=== PATIENT | female | born 1970 | race Caucasian/White ===

== ENCOUNTER 2019-07-22 14:47 | Emergency (ER) | payer OTHER ==
[~2019-07-22] VITALS: Ht 170.2 cm; Wt 65.9 kg
[2019-07-22] MEDS ORDERED: SYNT50TA PO (14:55)
[2019-07-22] MEDS ORDERED: methylPREDNISolone INJ 125 MG/2 ML VIAL (J2930) IM ONE (16:45)
[2019-07-22] MEDS ORDERED: KETOROLAC 60 MG/2 ML VIAL (J1885) IM ONE (16:45)
[2019-07-22 17:19] VITALS: BP 146/92
[2019-07-22] MEDS ORDERED: CYCL10TA PO (17:24)
[2019-07-22] MEDS ORDERED: CYCLOBENZAPRINE 10 MG TAB PO ONE (17:30)
== END 2019-07-22 17:38 | disposition home or self-care (01) ==
LOC: M ED 14:47
DX: S39.012A Strain of muscle, fascia and tendon of lower back, initial encounter (principal); X50.0XXA Overexertion from strenuous movement or load, initial encounter; Y92.098 Other place in other non-institutional residence as the place of occurrence of the external cause; E03.9 Hypothyroidism, unspecified; Z79.899 Other long term (current) drug therapy
CPT/HCPCS: 96372; 99283; J1885; J2930

== ENCOUNTER 2019-08-08 08:16 | Emergency (ER) | payer OTHER ==
[~2019-08-08] VITALS: Ht 170.2 cm; Wt 66.7 kg
[~2019-08-08 08:16] MED LIST: CYCL10TA PO; SYNT50TA PO
[2019-08-08] MEDS ORDERED: BENA25CA4 PO (08:21)
[2019-08-08] MEDS ORDERED: diphenhydrAMINE INJ 50MG/ML VIAL (J1200) IV ONE (08:45)
[2019-08-08] MEDS ORDERED: NS 1,000 ML IV ONE (08:45)
[2019-08-08] MEDS ORDERED: FAMOTIDINE INJ 20MG/2ML VIAL (S0028) IVP ONE (08:45)
[2019-08-08] MEDS ORDERED: methylPREDNISolone INJ 125 MG/2 ML VIAL (J2930) IV ONE (08:45)
[2019-08-08 09:08] LABS: BASO % 0.6 % (0.0-1.0); EOS # 0.1 10^3/uL (0.0-0.5); EOS % 2.6 % (0.0-3.0); HEMATOCRIT 42.6 % (36.0-47.0); HEMOGLOBIN 13.9 g/dl (12.0-15.5); LYMPH # 1.8 10^3/uL (1.5-5.0); LYMPH % 38.1 % (24.0-44.0); MEAN CORPUSCULAR HEMOGLOBIN 29.6 pg (27.0-33.0); MEAN CORPUSCULAR HGB CONC 32.6 g/dl (32.0-36.5); MEAN CORPUSCULAR VOLUME 90.8 fl (80.0-96.0); MONO # 0.4 10^3/uL (0.0-0.8); MONO % 7.9 % (0.0-5.0); NEUTROPHILS # 2.4 10^3/uL (1.5-8.5); NEUTROPHILS % 50.6 % (36.0-66.0); PLATELET COUNT, AUTOMATED 242 10^3/uL (150-450); RED BLOOD COUNT 4.69 10^6/uL (4.00-5.40); WHITE BLOOD COUNT 4.7 10^3/uL (4.0-10.0)
[2019-08-08 09:33] LABS: HCG, SERUM QUALITATIVE NEGATIVE (NEGATIVE)
[2019-08-08 09:36] LABS: ALBUMIN 3.9 GM/DL (3.2-5.2); ALT/SGPT 21 U/L (12-78); BILIRUBIN,DIRECT 0.1 MG/DL (0.0-0.2); BILIRUBIN,TOTAL 0.5 MG/DL (0.2-1.0); BLOOD UREA NITROGEN 14 MG/DL (7-18); C REACTIVE PROTEIN QUANTITATIV < 0.30 MG/DL (0.00-0.30); CALCIUM LEVEL 8.6 MG/DL (8.5-10.1); CARBON DIOXIDE LEVEL 27 MEQ/L (21-32); CHLORIDE LEVEL 108 MEQ/L (98-107); COMPLEMENT C4 33 MG/DL (10-40); CREATININE FOR GFR 0.93 MG/DL (0.55-1.30); GLOMERULAR FILTRATION RATE > 60.0 (>58); GLUCOSE, FASTING 104 MG/DL (70-100); POTASSIUM SERUM 3.9 MEQ/L (3.5-5.1); SODIUM LEVEL 139 MEQ/L (136-145); TOTAL PROTEIN 7.2 GM/DL (6.4-8.2)
[2019-08-08 10:27] LABS: ERYTHROCYTE SEDIMENTATION RATE 7 mm/hr (0-20)
[2019-08-08] MEDS ORDERED: diphenhydrAMINE INJ 50MG/ML VIAL (J1200) IV STA (11:44)
[2019-08-08] MEDS ORDERED: PRED20TA PO (12:27)
[2019-08-08] MEDS ORDERED: ALL10TAB2 PO (12:27)
[2019-08-08 12:58] VITALS: BP 112/70
[2019-08-14 00:06] LABS: C1 ESTER INHIB. NON FUNCTIONAL 31 mg/dL (21-39); C1 ESTERASE INHIB. FUNCTIONAL > 92 (.); COAGULATION FACTOR XII ACTIVIT 98 % (50-150); TRYPTASE 5.3 ug/L (2.2-13.2)
== END 2019-08-08 13:02 | disposition home or self-care (01) ==
LOC: M ED 08:16
DX: R22.0 Localized swelling, mass and lump, head (principal); L29.9 Pruritus, unspecified; T78.40XA Allergy, unspecified, initial encounter; T78.3XXA Angioneurotic edema, initial encounter; X58.XXXA Exposure to other specified factors, initial encounter; Y92.89 Other specified places as the place of occurrence of the external cause; E03.9 Hypothyroidism, unspecified; Z79.899 Other long term (current) drug therapy
CPT/HCPCS: 36415; 80048; 80076; 83519; 84703; 85025; 85280; 85652; 86140; 86160; 86161; 93041; 94760; 96361; 96374; 96375; 96376; 99285; J1200; J2930

== ENCOUNTER 2019-10-29 07:16 | Day surgery (SDC) | payer OTHER ==
[~2019-10-29] VITALS: Ht 170.2 cm; Wt 63.0 kg
[~2019-10-29 07:16] MED LIST changes: +ALL10TAB2 PO; +BENA25CA4 PO; +D3 H10002 PO; +EPIP0.3I2 IM; +FISH100042 PO; +FLON1SPR; +LIDOCAINE 1% MDV 20ML VIAL SQ PRN; +LR 1,000 ML IV ONE; +MULTCAP PO; +PRED20TA PO; +PROT20TA11 PO; +SING5CHW23 PO; +ceFAZolin SOD 2 GM in IV 1 EA IV ONE
[2019-10-29] MEDS ORDERED: dexameTHASONE 10 MG/1 ML VIAL PRES.FREE (J1100) ONE (07:17)
[2019-10-29] MEDS ORDERED: propofoL 500 MG/50 ML VIAL As Ordered ONE (08:10)
[2019-10-29] MEDS ORDERED: ONDANSETRON 4MG/2ML VIAL (J2405) As Ordered ONE (08:10)
[2019-10-29] MEDS ORDERED: LIDOCAINE 2% INJ 100 MG/5 ML SDV (FOR ANES.) As Ordered ONE (08:10)
[2019-10-29] MEDS ORDERED: fentaNYL 100 MCG/2 ML INJECTION (J3010) As Ordered ONE ×2 (08:10→10:07)
[2019-10-29] MEDS ORDERED: MIDAZOLAM INJ 2 MG/2 ML VIAL (J2250) As Ordered ONE ×2 (08:10→10:07)
[2019-10-29] MEDS ORDERED: KETOROLAC 60 MG/2 ML VIAL (J1885) As Ordered ONE (08:11)
[2019-10-29] MEDS ORDERED: ACETAMINOPHEN 1000MG 100ML IV BTL (OFIRMEV) (J0131 PER 10MG) As Ordered ONE (08:11)
[2019-10-29] MEDS ORDERED: BUPIVACAINE HCL 0.5% 30 ML VIAL As Ordered ONE (10:12)
[2019-10-29] MEDS ORDERED: fentaNYL 100 MCG/2 ML INJECTION (J3010) IV ONE (11:00)
[2019-10-29] MEDS ORDERED: MIDAZOLAM INJ 2 MG/2 ML VIAL (J2250) IV ONE (11:00)
[2019-10-29] MEDS ORDERED: ROPIvacaine 0.5% 30 ML INJECTION (J2795 PER 1MG) As Ordered ONE (11:29)
[2019-10-29] MEDS ORDERED: ePHEDrine SULFATE 25 MG/5 ML(5MG/ML) SYRINGE As Ordered ONE (12:52)
--- NOTE | 2019-10-29 13:37 | REP ---
C-ARM VIEWS, RIGHT KNEE: Single C-arm view of the right knee is performed. Metallic structure seen overlying the lateral femoral condyle. 11 seconds fluoroscopy time utilized. Electronically Signed by Elton Burkett MD 10/29/2019 04:02 P
[2019-10-29] MEDS ORDERED: fentaNYL 100 MCG/2 ML INJECTION (J3010) IV PRN (13:45)
[2019-10-29] MEDS ORDERED: ONDANSETRON 4MG/2ML VIAL (J2405) IV PRN ×2 (13:45)
[2019-10-29] MEDS ORDERED: PERCOCET 5MG/325MG TAB PO PRN ×2 (13:45)
[2019-10-29] MEDS ORDERED: LR 1,000 ML IV SCH (13:45)
--- NOTE | 2019-10-29 14:19 | REP ---
RIGHT KNEE, TWO VIEWS: Two views right knee performed. Small metallic plate is seen along the lateral femoral condyle. Osseous structures are intact and well aligned. Small amount of air is seen in the soft tissues above the patella. Electronically Signed by Elton Burkett MD 10/29/2019 04:02 P
[2019-10-29 16:00] VITALS: BP 125/125
[2019-10-29] MEDS ORDERED: NAPROXEN 250 MG TAB PO SCH (21:00)
--- NOTE | 2019-10-30 08:09 | RO ---
DATE OF PROCEDURE: 10/29/2019 PREOPERATIVE DIAGNOSIS: Right knee anterior cruciate ligament (ACL) tear. POSTOPERATIVE DIAGNOSES: Right knee anterior cruciate ligament (ACL) tear, small posterior horn lateral meniscal tear and patellofemoral and lateral compartment chondromalacia. PROCEDURE PERFORMED: Right knee exam under anesthesia, diagnostic arthroscopy, ACL reconstruction with allograft and patellofemoral chondroplasty. SURGEON: Keaton Pompa MD COMMUNITY RELATIONS SPECIALIST: UNI[facility] ANESTHESIA PROVIDER: Mike Melgar MD ANESTHESIA GIVEN: Single shot spinal and adductor canal block. TOTAL TOURNIQUET TIME: Was 52 minutes at 250 mmHg right thigh. IMPLANTS USED: Arthrex TightRope RT for femoral fixation, and Arthrex 8 x 23 mm PEEK tibial interference screw and tibialis posterior allograft. ESTIMATED BLOOD LOSS: 5 mL. ANTIBIOTICS: 2 grams Ancef given within 1 hour of incision. MATERIAL SENT TO THE LAB: None. COMPLICATIONS: None. 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 She initially presented with poor range of motion so she was sent physical therapy to regain range of motion and obtain quad control, which she did. Given her age we discussed the possibility of nonoperative treatment. However, given that she is a skier and wants to return to skiing, she elected to proceed with right knee ACL reconstruction. The risks, benefits, indications and alternatives of operative versus nonoperative management were discussed. We included discussion of graft options and the patient elected to proceed with allograft reconstruction for the right ACL. Informed consent was obtained. INTRAOPERATIVE FINDINGS: Exam under anesthesia revealed full passive range of motion. She had a grade 1 pivot shift, 2B Andrew, stable to varus and valgus stress, 0 and 30 3 degrees. Diagnostic arthroscopy revealed grade 2-3 chondromalacia and the trochlea grade 1-2 chondromalacia, in the patella there was grade 2 chondromalacia over the lateral tibial plateau. There was no chondromalacia in the medial compartment. There were no medial meniscal tears. There was a small, less than 5 mm tear, in the posterior horn of the lateral meniscus. There were no focal osteochondral lesions. There is near complete ACL tear. The PCL was intact. There are no loose bodies in the suprapatellar pouch, medial gutter or lateral gutter. DESCRIPTION OF PROCEDURE: The patient was positively identified in the preop holding area where the surgical site was marked. She was then brought to the operating room after being given single shot adductor canal nerve block by the anesthesia service for postop pain control. She was then given a single shot spinal anesthesia for intraoperative pain control. She was positioned in supine luisa-lithotomy on regular table with all bony prominences appropriately padded. Sequential compression device (SCD) was placed on the nonoperative extremity for deep vein thrombosis (DVT) prophylaxis. I performed the exam under anesthesia with the above noted findings. She was then prepped and draped in the usual sterile fashion. A final time out was performed. I began with the diagnostic arthroscopy while my virtual assistant for advertisers prepared the tibialis posterior allograft on the back table. I made a standard anterolateral viewing portal, anteromedial working portal and performed the diagnostic arthroscopy with the above-noted findings. The small posterior horn lateral meniscal tear, given its small size and the fact that the meniscus was overall stable, did not require repair. I then performed a chondroplasty of the patellofemoral compartment to a smooth and stable border. There were no loose articular bodies. I then performed a debridement of inflamed synovium and then debrided the residual ACL. I then introduced the 110 degrees right femoral FlipCutter guide. After the graft was prepared, it was measured to a diameter of 9 mm. Therefore, I elected use a 9 mm FlipCutter. Then using a standard technique, drilled a 9 x 30 mm socket in the femur, in the center of the [place] ACL footprint in the standard fashion. Bony debris was cleared from the wound. A FiberStick suture was placed to aid in graft passage. I then introduced the 55 degree tibial guide, centered on the [place] ACL tibial footprint. I drilled the guide pin followed by a 9 mm cannulated drill bit. Bony debris was cleared from the wound. The FiberStick suture was brought through the tibial tunnel. The graft with the TightRope button was then passed through the femoral and tibial tunnels. The TightRope was then seated firmly on the lateral femoral cortex. I used intraoperative mini C-arm fluoroscopy to confirm that the button was flush to the lateral femoral cortex. The graft was then introduced into the femur until it was fully seated. There was about 30 mm of graft within the femoral tunnel. The graft was then cycled to reduced creep. The knee was then brought into extension confirming no anterior impingement of the graft. I then put the knee in 20 degrees of flexion and posterior drawer force applied, applied the 8 x 23 mm PEEK tibial interference screw. There was excellent fixation into the bone. After fixation, she had 1A Andrew, grade 0 pivot. I reintroduced the arthroscope to confirm there was no intra-articular penetration of implants and adequate tension of the graft and this was confirmed after final arthroscopic photos were taken. The effusion was evacuated from the knee, instruments were removed. The wounds were closed with simple interrupted #3-0 nylon sutures. Sterile dressings were applied. The tourniquet was let down at 52 minutes and this ended the procedure. I was present and scrubbed in for all critical portions of the case. POSTOPERATIVE PLAN: She will be in a brace. She will be weightbearing as tolerated. She will undergo ACL reconstruction rehabilitation protocol. She will be discharged home today and followup in 10-14 days for wound check and suture removal. RANDAL
== END 2019-10-29 16:24 | disposition home or self-care (01) ==
LOC: M SDC 07:16
PROVIDERS: ATTEND Orthopaedic Surgery
DX: S83.511A Sprain of anterior cruciate ligament of right knee, initial encounter (principal); S83.281A Other tear of lateral meniscus, current injury, right knee, initial encounter; M94.261 Chondromalacia, right knee; V00.321A Fall from snow-skis, initial encounter; Y92.838 Other recreation area as the place of occurrence of the external cause; Y93.23 Activity, snow (alpine) (downhill) skiing, snowboarding, sledding, tobogganing and snow tubing; E03.9 Hypothyroidism, unspecified; K21.9 Gastro-esophageal reflux disease without esophagitis; Z87.891 Personal history of nicotine dependence; Z91.013 Allergy to seafood; Z91.011 Allergy to milk products; Z91.018 Allergy to other foods; Z91.010 Allergy to peanuts; Z79.899 Other long term (current) drug therapy
CPT/HCPCS: 29888; 73560; 81025; C1713; C1762; J0131; J0690; J1100; J1885; J2250; J2405; J2795; J3010